=== PATIENT | male | born 1985 | race Caucasian/White ===

== ENCOUNTER → 2017-01-21 20:55 | Emergency (ER) | payer OTHER ==
[~2017-01-21 20:55] MED LIST: CLINDAMYCIN HC300 MG PO
== END | disposition left against medical advice (07) ==
LOC: EME 20:55
DX: K08.89 Other specified disorders of teeth and supporting structures (principal); Z53.21 Procedure and treatment not carried out due to patient leaving prior to being seen by health care provider

== ENCOUNTER 2017-01-22 07:09 | Emergency (ER) | payer OTHER ==
[~2017-01-22] VITALS: Ht 182.9 cm; Wt 75.9 kg
[2017-01-22 07:42] LABS: EOSINOPHIL (%) 1.5 % (0-5); EOSINOPHIL COUNT 0.1 K/uL (0-0.3); HEMATOCRIT 42.8 % (38.0-50.0); IMMATURE GRANULOCYTE (%) 0.3 % (0.0-0.7); INSTRUMENT ABS NEUTROPHIL CT 6.9 K/uL; LYMPHOCYTE COUNT 1.5 K/uL (1.0-2.8); MCH 29.8 PG (29.0-34.0); MCHC 35.3 G/DL (30.0-36.0); MCV 84.6 FL (86-99); MEAN PLAT.VOLUME 9.3 uM^3 (9.0-12.4); MONOCYTE COUNT 0.6 K/uL (0-0.8); NEUTROPHIL (%) 75.1 % (45-76); NEUTROPHIL COUNT 6.9 K/uL (1.8-6.4); PLATELET COUNT 178 K/uL (156-360); RBC DIS.WIDTH-CV 12.5 % (11.8-14.6); RED BLOOD COUNT 5.06 M/uL (4.00-5.50); WHITE BLOOD COUNT 9.2 K/uL (4.1-10.2)
[2017-01-22 08:01] LABS: CHLORIDE 104 mEq/L (99-109); POTASSIUM 3.8 mEq/L (3.7-5.4); SODIUM 138 mEq/L (136-147)
[2017-01-22 08:03] LABS: GLUCOSE 105 mg/dL (70-99)
[2017-01-22 08:04] LABS: ANION GAP 12 MEQ/L (2-14)
[2017-01-22 08:07] LABS: GFR ESTIMATE (CALCULATED) > 59 mL/min/
[2017-01-22 08:08] LABS: UREA NITROGEN (BUN) 9 mg/dL (9-23)
[2017-01-22] MEDS ORDERED: CLINDAMYCIN HC300 MG PO (10:22)
[2017-01-22 10:32] VITALS: BP 130/70
== END 2017-01-22 10:33 | disposition left against medical advice (07) ==
LOC: EME 07:09
PROVIDERS: Emergency Medicine
DX: L03.211 Cellulitis of face (principal); K02.9 Dental caries, unspecified; Z88.0 Allergy status to penicillin; F17.200 Nicotine dependence, unspecified, uncomplicated; Z53.29 Procedure and treatment not carried out because of patient's decision for other reasons
CPT/HCPCS: 70487; 80048; 85025; 99281; 99284; J1885; J7030